=== PATIENT | female | born 1975 | race Caucasian/White ===

== ENCOUNTER 2022-08-24 22:37 | Emergency (ER) | payer OTHER ==
[2022-08-25 00:19] LABS: SARS-CoV-2 NAA Rapid Test Not Detected (NotDetected)
[2022-08-25] MEDS ORDERED: Dexamethasone 10 MG/ML VIAL ONE (00:24)
[2022-08-25] MEDS ORDERED: Ketorolac Tromethamine 30 MG/ML VIAL ONE (00:24)
== END 2022-08-25 00:35 | disposition home or self-care (01) ==
LOC: ERS 22:37
DX: J02.0 Streptococcal pharyngitis (principal); Z20.822 Contact with and (suspected) exposure to COVID-19; E03.9 Hypothyroidism, unspecified; J44.9 Chronic obstructive pulmonary disease, unspecified; I10 Essential (primary) hypertension
CPT/HCPCS: 71046; 87430; 96372; J1100; J1885

== ENCOUNTER 2023-01-01 13:32 | Outpatient (CLI) | payer MEDICAID, OTHER | END 2023-01-01 13:33 | disposition home or self-care (01) | LOC: DTY/OP 13:32 | PROVIDERS: ATTEND Surgery | DX: E66.01 Morbid (severe) obesity due to excess calories (principal) | CPT/HCPCS: 97802 ==

== ENCOUNTER 2023-03-02 12:55 | Outpatient (CLI) | payer OTHER | END 2023-03-02 12:56 | disposition home or self-care (01) | LOC: DTY/OP 12:55 | PROVIDERS: ATTEND Surgery | DX: E66.01 Morbid (severe) obesity due to excess calories (principal) | CPT/HCPCS: 97802 ==

== ENCOUNTER 2023-04-02 15:42 | Outpatient (CLI) | payer OTHER | END 2023-04-02 15:43 | disposition home or self-care (01) | LOC: DTY/OP 15:42 | PROVIDERS: ATTEND Surgery | DX: E66.01 Morbid (severe) obesity due to excess calories (principal) | CPT/HCPCS: 97802 ==

== ENCOUNTER 2023-05-04 11:18 | Outpatient (CLI) | payer OTHER | END 2023-05-04 11:19 | disposition home or self-care (01) | LOC: DTY/OP 11:18 | PROVIDERS: ATTEND Surgery | DX: E66.01 Morbid (severe) obesity due to excess calories (principal) | CPT/HCPCS: 97802 ==

== ENCOUNTER 2023-05-30 09:48 | Outpatient (CLI) | payer OTHER | END 2023-05-30 09:49 | disposition home or self-care (01) | LOC: RAD 09:48 | PROVIDERS: ATTEND Internal Medicine Critical Care Medicine | DX: R06.00 Dyspnea, unspecified (principal) | CPT/HCPCS: 71046 ==

== ENCOUNTER 2023-06-05 13:05 | Outpatient (CLI) | payer OTHER | END 2023-06-05 13:06 | disposition home or self-care (01) | LOC: BICMAMMO 13:05 | PROVIDERS: ATTEND Physician Assistant | DX: Z12.31 Encounter for screening mammogram for malignant neoplasm of breast (principal); Z80.3 Family history of malignant neoplasm of breast; Z91.89 Other specified personal risk factors, not elsewhere classified | CPT/HCPCS: 77067 ==

== ENCOUNTER 2023-06-06 13:07 | Outpatient (CLI) | payer OTHER | END 2023-06-06 13:08 | disposition home or self-care (01) | LOC: DTY/OP 13:07 | PROVIDERS: ATTEND Surgery | DX: E66.01 Morbid (severe) obesity due to excess calories (principal) | CPT/HCPCS: 97802 ==

== ENCOUNTER 2023-07-01 16:00 | Outpatient (CLI) | payer OTHER | END 2023-07-01 16:01 | disposition home or self-care (01) | LOC: SLEEPLAB 16:00 | PROVIDERS: ATTEND Nurse Practitioner Family | DX: G47.33 Obstructive sleep apnea (adult) (pediatric) (principal); K21.9 Gastro-esophageal reflux disease without esophagitis; J44.9 Chronic obstructive pulmonary disease, unspecified; F41.8 Other specified anxiety disorders; I10 Essential (primary) hypertension; E66.9 Obesity, unspecified; G47.61 Periodic limb movement disorder | CPT/HCPCS: 95811 ==

== ENCOUNTER 2023-07-04 13:41 | Outpatient (CLI) | payer OTHER | END 2023-07-04 13:42 | disposition home or self-care (01) | LOC: DTY/OP 13:41 | PROVIDERS: ATTEND Surgery | DX: E66.01 Morbid (severe) obesity due to excess calories (principal) | CPT/HCPCS: 97802 ==

== ENCOUNTER 2023-09-28 12:54 | Outpatient (CLI) | payer OTHER | END 2023-09-28 12:55 | disposition home or self-care (01) | LOC: DTY/OP 12:54 | PROVIDERS: ATTEND Surgery | DX: E66.01 Morbid (severe) obesity due to excess calories (principal) | CPT/HCPCS: 97802 ==

== ENCOUNTER 2023-10-26 10:24 | Outpatient (CLI) | payer OTHER | END 2023-10-26 10:25 | disposition home or self-care (01) | LOC: DTY/OP 10:24 | PROVIDERS: ATTEND Surgery | DX: E66.01 Morbid (severe) obesity due to excess calories (principal); Z68.43 Body mass index [BMI] 50.0-59.9, adult | CPT/HCPCS: 97802 ==

== ENCOUNTER 2023-10-29 13:16 | Outpatient (CLI) | payer OTHER | END 2023-10-29 13:17 | disposition home or self-care (01) | LOC: RAD 13:16 | PROVIDERS: ATTEND Internal Medicine | DX: R06.00 Dyspnea, unspecified (principal) | CPT/HCPCS: 71046 ==

== ENCOUNTER 2024-01-30 13:17 | Outpatient (CLI) | payer OTHER ==
[2024-01-30 14:58] LABS: #Basophils 0.05 10x3/uL (0.0-0.2); %Basophils 0.9 % (0.0-1.0); %Eosinophils 2.9 % (0.0-10.0); %Lymphocytes 31.5 % (21.0-51.0); %Monocytes 8.4 % (0.0-10.0); %Neutrophils 56.1 % (42.0-75.0); Hematocrit 43.9 % (36.0-47.0); Hemoglobin 14.3 g/dL (12.0-16.0); Mean Corpuscular HGB CONC 32.6 g/dL (32.0-36.0); Mean Corpuscular Hemoglobin 29.9 pg (27.0-31.0); Mean Corpuscular Volume 91.8 fL (78.0-98.0); Mean Platelet Volume 11.3 fL (7.4-10.4); Platelet Count 221 10x3/uL (130-400); RBC Distribution Width 12.7 % (11.5-14.5); Red Blood Cell (RBC) Count 4.78 mill/uL (4.20-5.40)
[2024-01-30 15:17] LABS: ALT (SGPT) 13 U/L (8-55); AST (SGOT) 13 U/L (5-34); Albumin 3.4 g/dL (3.5-5.0); Alkaline Phosphatase 67 U/L (40-110); Anion Gap 12 mmol/L (10-20); BUN (Urea Nitrogen) 16 mg/dL (7.0-18.7); Bilirubin, Total 0.4 mg/dL (0.2-1.2); Calc. Creatinine Clearance 0 mL/min (70-130); Calcium 9.2 mg/dL (7.8-10.44); Carbon Dioxide 28 mmol/L (22-29); Chloride 104 mmol/L (98-107); Estimated GFR 93; Globulin 3.1 g/dL (2.4-3.5); Glucose 98 mg/dL (70-105); Hemoglobin A1c 4.9 % (4.0-6.0); Potassium 4.4 mmol/L (3.5-5.1); Protein, Total 6.5 g/dL (6.0-8.3); Sodium 140 mmol/L (136-145)
== END 2024-01-30 13:18 | disposition home or self-care (01) ==
LOC: LABBT 13:17
PROVIDERS: ATTEND Surgery
DX: Z01.818 Encounter for other preprocedural examination (principal); E66.01 Morbid (severe) obesity due to excess calories
CPT/HCPCS: 80053; 83036; 85025; 93005; 93010

== ENCOUNTER 2024-01-30 13:30 | Inpatient (IN) | payer OTHER ==
[2024-02-06] MEDS ORDERED: Heparin 5,000 UNITS/ML VIAL ONE (06:16)
[2024-02-06] MEDS ORDERED: Sodium Chloride 0.9% 100 ML ONE (06:17)
[2024-02-06] MEDS ORDERED: CEFAZOLIN 2 GM VIAL ONE (06:17)
[2024-02-06] MEDS ORDERED: Scopolamine 1 mg/72 hour Patch ONE (06:17)
[2024-02-06] MEDS ORDERED: EPINEPHrine 1 MG/ML VIAL ONE (06:55)
[2024-02-06] MEDS ORDERED: Bupivacaine 0.25% HCL 30 ML VIAL ONE (06:56)
[2024-02-06] MEDS ORDERED: Lidocaine 1% PF 5 ML VIAL ONE (07:17)
[2024-02-06] MEDS ORDERED: Rocuronium Bromide 10 MG/ML (10ML VIAL) ONE (07:17)
[2024-02-06] MEDS ORDERED: fentaNYL PF 100 MCG/2 ML SYRINGE ONE ×2 (07:17→09:29)
[2024-02-06] MEDS ORDERED: Dexamethasone 4 mg/ml Vial ONE (07:17)
[2024-02-06] MEDS ORDERED: Ondansetron PF 4 MG/2 ML Vial ONE ×2 (07:17→10:22)
[2024-02-06] MEDS ORDERED: PROPOFOL 20 ML ONE (07:17)
[2024-02-06] MEDS ORDERED: SUGAMMADEX SODIUM 200 MG/2 ML VIAL ONE (09:47)
[2024-02-06] MEDS ORDERED: Ipratropium/Albuterol 3 ML NEB NEB PRN (10:07)
[2024-02-06] MEDS ORDERED: Ondansetron PF 4 MG/2 ML Vial IVP PRN ×2 (10:07→21:16)
[2024-02-06] MEDS ORDERED: Glucagon 1 MG/ML KIT IM PRN (10:07)
[2024-02-06] MEDS ORDERED: Dextrose 50% Abboject 50 ML SYRINGE SLOW IVP PRN (10:07)
[2024-02-06] MEDS ORDERED: diphenhydrAMINE 50 MG/ML VIAL IVP PRN (10:07)
[2024-02-06] MEDS ORDERED: Dextrose 5% in Water 1,000 ML IV PRN (10:07)
[2024-02-06] MEDS ORDERED: hydrALAZINE 20 MG/ML VIAL SLOW IVP PRN (10:07)
[2024-02-06] MEDS ORDERED: Promethazine HCl 25 MG/ML VIAL ONE (10:22)
[2024-02-06 12:27] VITALS: BMI 27.0
[2024-02-06] MEDS ORDERED: fentaNYL 50 mcg/mL 1 mL Vial ONE (12:27)
[2024-02-06] MEDS ORDERED: Ketorolac Tromethamine 30 MG (1 mL) VIAL ONE (12:32)
[2024-02-06] MEDS ORDERED: D5 1/2 NS w/20 mEq KCL 1,000 ML ONE (12:33)
[2024-02-06] MEDS: Ketorolac Tromethamine 30 MG (1 mL) VIAL IVP SCH (12:37)
[2024-02-06] MEDS: D5 1/2 NS w/20 mEq KCL 1,000 ML IV SCH (12:38)
[2024-02-06] MEDS ORDERED: FLU (Fluarix Triv) TS24-25(6MOS UP)/PF 45 MCG/0.5 ML Syringe IM ONE (15:00)
[2024-02-06] MEDS: CEFAZOLIN 2 GM in Sodium Chloride 0.9% 100 ML IVPB SCH ×2 (15:48→22:11)
[2024-02-06] MEDS: Promethazine HCl 25 MG/ML VIAL IM PRN (16:02)
[2024-02-06] MEDS: Ondansetron PF 4 MG/2 ML Vial IVP PRN (19:01)
[2024-02-06] MEDS ORDERED: HYDROmorphone/PF 10 MG in Sodium Chloride 0.9% 99 ML IV PRN (21:16)
[2024-02-06] MEDS ORDERED: diphenhydrAMINE 50 MG/ML VIAL IM PRN (21:16)
[2024-02-06] MEDS ORDERED: Naloxone HCl 0.4 mg/ml Vial IV PRN (21:16)
[2024-02-06] MEDS ORDERED: diphenhydrAMINE 25 MG CAP PO PRN (21:16)
[2024-02-06] MEDS ORDERED: Promethazine HCl 25 MG/ML VIAL IM PRN (21:16)
[2024-02-06] MEDS: Sodium Chloride 0.9% 500 ML IVPB SCH (21:26)
[2024-02-06] MEDS ORDERED: Communication Order-Pharmacy FS SCH (21:30)
[2024-02-06] MEDS: Promethazine HCl 12.5 MG in Sodium Chloride 0.9% 50 ML IVPB PRN (23:57)
[2024-02-07] MEDS: HYDROmorphone/PF 10 MG in Sodium Chloride 0.9% 99 ML IV PRN (00:40)
[2024-02-07 05:49] LABS: #Basophils Less than 0.03 10x3/uL (0.0-0.2); #Eosinophils Less than 0.03 10x3/uL (0.0-0.7); %Basophils 0.1 % (0.0-1.0); %Lymphocytes 9.5 % (21.0-51.0); %Monocytes 8.4 % (0.0-10.0); %Neutrophils 81.5 % (42.0-75.0); Hematocrit 37.8 % (36.0-47.0); Hemoglobin 12.6 g/dL (12.0-16.0); Mean Corpuscular HGB CONC 33.3 g/dL (32.0-36.0); Mean Corpuscular Hemoglobin 30.2 pg (27.0-31.0); Mean Corpuscular Volume 90.6 fL (78.0-98.0); Platelet Count 200 10x3/uL (130-400); RBC Distribution Width 12.7 % (11.5-14.5); Red Blood Cell (RBC) Count 4.17 mill/uL (4.20-5.40)
[2024-02-07 06:13] LABS: Anion Gap 10 mmol/L (10-20); BUN (Urea Nitrogen) 10 mg/dL (7.0-18.7); Calc. Creatinine Clearance 104 mL/min (70-130); Calcium 7.7 mg/dL (7.8-10.44); Carbon Dioxide 24 mmol/L (22-29); Chloride 106 mmol/L (98-107); Estimated GFR 107; Glucose 149 mg/dL (70-105); Potassium 4.1 mmol/L (3.5-5.1); Sodium 136 mmol/L (136-145)
[2024-02-07] MEDS: Pantoprazole 40 MG VIAL IVP SCH (09:51)
[2024-02-07] MEDS: Enoxaparin 40 MG (0.4 mL) SYRINGE SC SCH (09:51)
[2024-02-08 11:50] VITALS: BP 98/65; TEMP 98.3
== END 2024-02-08 14:00 | disposition home or self-care (01) | DRG 621 ==
LOC: T4-A 02-06 05:49 → SURG A 02-06 14:04
PROVIDERS: ADMIT Surgery; ATTEND Surgery
PROC: 0D164ZA Bypass Stomach to Jejunum, Percutaneous Endoscopic Approach (ICD-10-PCS; principal; 2024-02-06)
PROC: 8E0W4CZ Robotic Assisted Procedure of Trunk Region, Percutaneous Endoscopic Approach (ICD-10-PCS; 2024-02-06)
PROC: 5A09357 Assistance with Respiratory Ventilation, Less than 24 Consecutive Hours, Continuous Positive Airway Pressure (ICD-10-PCS; 2024-02-08)
DX: E66.01 Morbid (severe) obesity due to excess calories (principal); Z68.27 Body mass index [BMI] 27.0-27.9, adult; Z79.899 Other long term (current) drug therapy; F32.A Depression, unspecified; F41.9 Anxiety disorder, unspecified; Z98.51 Tubal ligation status; Z88.5 Allergy status to narcotic agent
CPT/HCPCS: 36415; 80048; 85025; J0171; J0665; J1100; J1170; J1644; J1650; J1885; J2405; J2470; J2550; J2704; J3010; J3480; J7030

== ENCOUNTER 2025-04-09 14:34 | Outpatient (CLI) | payer OTHER | END 2025-04-09 14:35 | disposition home or self-care (01) | LOC: BICRAD 14:34 | PROVIDERS: ATTEND Family Medicine | DX: R06.9 Unspecified abnormalities of breathing (principal) | CPT/HCPCS: 71046 ==